=== PATIENT | female | born 1960 | race Caucasian/White ===

== ENCOUNTER 2020-10-23 14:29 | Emergency (ER) | payer OTHER ==
[~2020-10-23 14:29] MED LIST: ALDACTONE25 MG PO; ASPIR 8181 MG PO; BASAGLAR K100 UNIT/1 SQ; CIMETIDINE300 MG PO; CLARITIN10 MG PO; FLONASE ALLER15.8 ML; IBU600 MG PO; LANSOPRAZOLE30 MG PO; LANTUS100 UNIT/1 SQ; LEVAQUIN500 MG PO; LISINOPRIL30 MG PO; LOPERAMIDE2 M1 PO; LORATADINE-D 21 EACH PO; METOPROLOL SUCC25 MG PO; NITRO-DUR 0.2 MG1 EA TD; NITRO-DUR1 EAC3 TOP; NITROGLYCERIN1 EAC3 TD; NITROSTAT0.4 MG SL; NORVASC 5 MG TAB5 MG PO; NORVASC2.5 MG PO; NOVOLOG 10100 UNITS1 INJ; NOVOLOG FL100 UNIT/1 SQ; OMEPRAZOLE40 MG PO; OXYCODONE HCL E10 MG PO; OXYCODONE HCL10 MG PO; OXYMORPHONE HC7.5 MG PO; PERCOCET 10-321 EACH PO; PHENERGAN 25 MG25 M1 PO; PREVACID 30 MG30 MG PO; SYNTHROID112 MCG PO; SYNTHROID125 MCG PO; SYNTHROID137 MCG PO; VITAMIN D21250 MCG PO
== END 2020-10-23 15:35 | disposition home or self-care (01) ==
LOC: ER1 14:29
DX: R06.02 Shortness of breath (principal); R07.9 Chest pain, unspecified; I11.0 Hypertensive heart disease with heart failure; I50.9 Heart failure, unspecified; J44.9 Chronic obstructive pulmonary disease, unspecified; E11.9 Type 2 diabetes mellitus without complications; Z88.0 Allergy status to penicillin
CPT/HCPCS: 71045; 93005; 99285